=== PATIENT | female | born 1970 | race Caucasian/White ===

== ENCOUNTER 2017-09-03 12:44 | Outpatient (CLI) | payer MEDICARE ==
--- NOTE | 2017-09-03 21:19 | RAD ---
LUMBAR SPINE THREE VIEWS 09/03/17 No fracture or dislocation was seen. There is no particular disc space narrowing. Arthritic changes are not prominent. The SI joints appear normal. IMPRESSION: No significant lumbar findings. POS: HOME
== END 2017-09-03 12:45 | disposition home or self-care (01) ==
LOC: BURRAD 12:44
PROVIDERS: ATTEND Family Medicine
DX: M54.16 Radiculopathy, lumbar region (principal)
CPT/HCPCS: 72100

== ENCOUNTER 2018-03-02 15:34 | Emergency (ER) | payer MEDICARE, MEDICAID ==
[2018-03-02] MEDS ORDERED: Lorazepam 2 MG/ML VIAL ONE ×2 (15:59→16:52)
[2018-03-02 16:17] LABS: Bilirubin Negative (Negative); Blood, Urine Negative (Negative); Clarity Slightly Cloudy (Clear); Glucose, Urine (Dipstick) Negative (Negative); Leukocyte Negative (Negative); Nitrite Negative (Negative); Protein, Urine (Dipstick) Negative (Neg-Trace); Urobilinogen 0.2 mg/dL (0.2-1.0)
[2018-03-02 16:18] LABS: Specific Gravity, Urine 1.005 (1.002-1.036)
[2018-03-02 16:21] LABS: #Basophils 0.1 thou/uL (0.0-0.2); #Eosinphils 0.1 thou/uL (0.0-0.7); #Lymphocytes 2.5 thou/uL (1.20-3.40); #Monocytes 0.5 thou/uL (0.11-0.59); %Basophils 1.5 % (0.0-1.0); %Eosinophils 0.8 % (0.0-10.0); %Lymphocytes 30.3 % (21.0-51.0); %Monocytes 6.4 % (0.0-10.0); %Neutrophils 61.1 % (42.0-75.0); Hemoglobin 14.4 g/dL (12.0-16.0); Mean Corpuscular HGB CONC 34.2 g/dL (32.0-36.0); Mean Corpuscular Hemoglobin 32.4 pg (27.0-31.0); Mean Corpuscular Volume 94.8 fl (81.0-99.0); Mean Platelet Volume 10.1 fL (7.4-10.4); Platelet Count 399 thou/uL (130-400); RBC Distribution Width 12.7 % (11.5-14.5); Red Blood Cell (RBC) Count 4.46 mill/uL (4.20-5.40); White Blood Cell (WBC) Count 8.2 thou/uL (4.8-10.8)
[2018-03-02 16:23] LABS: Amphetamine Not Detected (NotDetected); Cocaine Metabolite Screen Not Detected (NotDetected); Methamphetamine Not Detected (NotDetected); Opiate Screen Not Detected (NotDetected); Phencyclidine (PCP) Not Detected (NotDetected); THC/Cannabinoid Screen Not Detected (NotDetected)
[2018-03-02 16:24] LABS: Barbiturates Screen Not Detected (NotDetected); Benzodiazepine Screen Detected (NotDetected); Medtox Control Line Valid? VALID (VALID); Methadone Not Detected (NotDetected); Oxycodone Screen Not Detected (NotDetected); Tricyclic Screen Not Detected (NotDetected)
[2018-03-02 16:41] LABS: ALT (SGPT) 17 U/L (8-55); AST (SGOT) 13 U/L (5-34); Acetaminophen Less than 6.0 mcg/mL (10.0-30.0); Albumin 4.6 g/dL (3.5-5.0); Alcohol 144 mg/dL (Less than 10); Alkaline Phosphatase 127 U/L (40-150); Anion Gap 17 mmol/L (10-20); BUN (Urea Nitrogen) 7 mg/dL (7.0-18.7); Bilirubin, Total 0.3 mg/dL (0.2-1.2); Calc. Creatinine Clearance 0 mL/min (70-130); Calcium 9.5 mg/dL (7.8-10.44); Carbon Dioxide 18 mmol/L (22-29); Chloride 111 mmol/L (98-107); Estimated GFR-MDRD 78; Globulin 2.8 g/dL (2.4-3.5); Glucose 95 mg/dL (70-105); Potassium 3.7 mmol/L (3.5-5.1); Protein, Total 7.4 g/dL (6.0-8.3); Salicylate Less than 8.0 mg/dL (15.0-30.0); Sodium 142 mmol/L (136-145)
[2018-03-02] MEDS ORDERED: Ketorolac Tromethamine 30 MG/ML VIAL ONE (16:53)
[2018-03-02] MEDS ORDERED: Thiamine HCl 200 MG/2 ML VIAL ONE (18:51)
[2018-03-02] MEDS ORDERED: Acetaminophen/Codeine 30-300mg Tablet ONE (19:13)
== END 2018-03-02 21:36 | disposition psychiatric hospital, planned readmission (93) ==
LOC: BURERS 15:34
DX: R45.851 Suicidal ideations (principal); F10.129 Alcohol abuse with intoxication, unspecified; Y90.6 Blood alcohol level of 120-199 mg/100 ml; F17.210 Nicotine dependence, cigarettes, uncomplicated
CPT/HCPCS: 80053; 80306; 80307; 81003; 84443; 85025; 94760; 96372; J1885; J2060; J3411

== ENCOUNTER 2018-08-10 14:12 | Emergency (ER) | payer MEDICARE, MEDICAID ==
[2018-08-10] MEDS ORDERED: Ibuprofen 800 MG TAB ONE (14:58)
[2018-08-10] MEDS ORDERED: Adacel (T-DAP) 0.5 ML VIAL ONE (15:07)
== END 2018-08-10 15:08 | disposition home or self-care (01) ==
LOC: BURERS 14:12
DX: L02.411 Cutaneous abscess of right axilla (principal); F17.210 Nicotine dependence, cigarettes, uncomplicated
CPT/HCPCS: 10060; 90471; 90715

== ENCOUNTER 2018-09-27 09:25 | Emergency (ER) | payer MEDICARE, MEDICAID ==
[2018-09-27] MEDS ORDERED: Ketorolac Tromethamine 60 MG/2 ML VIAL ONE (10:03)
[2018-09-27] MEDS ORDERED: Sulfameth/Trimethoprim DS 800-160mg TAB ONE ×2 (10:03→10:14)
[2018-09-27] MEDS ORDERED: cefTRIAXone\\ROCEPHIN 1 GM VIAL ONE (10:03)
[2018-09-27] MEDS ORDERED: Lidocaine 1% PF 5 ML VIAL ONE (10:08)
== END 2018-09-27 10:26 | disposition home or self-care (01) ==
LOC: BURERS 09:25
DX: S50.811A Abrasion of right forearm, initial encounter (principal); L03.113 Cellulitis of right upper limb; F17.210 Nicotine dependence, cigarettes, uncomplicated; G80.9 Cerebral palsy, unspecified; X58.XXXA Exposure to other specified factors, initial encounter
CPT/HCPCS: 96372; J0696; J1885; J2001

== ENCOUNTER 2018-09-28 06:17 | Emergency (ER) | payer MEDICARE, MEDICAID | END 2018-09-28 06:34 | disposition home or self-care (01) | LOC: BURERS 06:17 | DX: Z48.817 Encounter for surgical aftercare following surgery on the skin and subcutaneous tissue (principal); F17.210 Nicotine dependence, cigarettes, uncomplicated; Z79.891 Long term (current) use of opiate analgesic | CPT/HCPCS: 99283 ==

== ENCOUNTER 2019-01-05 12:53 | Emergency (ER) | payer MEDICARE, MEDICAID ==
[2019-01-05] MEDS ORDERED: Sodium Bicarbonate 2.5 MEQ/5 ML VIAL ONE (13:15)
[2019-01-05] MEDS ORDERED: HYDROcodone/Acetaminophen 5/325 mg Tablet ONE (13:30)
[2019-01-05] MEDS ORDERED: Sulfameth/Trimethoprim DS 800-160mg TAB ONE (14:10)
== END 2019-01-05 14:32 | disposition home or self-care (01) ==
LOC: BURERS 12:53
DX: L03.317 Cellulitis of buttock (principal); F17.210 Nicotine dependence, cigarettes, uncomplicated
CPT/HCPCS: 10060; 84484; 87070; 87077; 87186; 87205; 93005

== ENCOUNTER 2022-07-21 16:31 | Emergency (ER) | payer MEDICARE, OTHER | END 2022-07-21 17:45 | disposition home or self-care (01) | LOC: BURERS 16:31 | DX: R21 Rash and other nonspecific skin eruption (principal); F17.210 Nicotine dependence, cigarettes, uncomplicated | CPT/HCPCS: 99282 ==